=== PATIENT | male | born 1985 | race Two or more races ===

== ENCOUNTER 2022-12-06 23:18 | Emergency (ER) | payer SELFPAY ==
[~2022-12-06] VITALS: Ht 170.2 cm; Wt 108.0 kg
[2022-12-06 23:34] VITALS: BP 138/71; PULSE 70; RESP 18; TEMP 98.7
== END 2022-12-07 01:20 | disposition home or self-care (01) ==
LOC: EMS 23:22
DX: S61.212A Laceration without foreign body of right middle finger without damage to nail, initial encounter (principal); W45.8XXA Other foreign body or object entering through skin, initial encounter; Y93.89 Activity, other specified; Y92.89 Other specified places as the place of occurrence of the external cause; Y99.8 Other external cause status
CPT/HCPCS: 99281; Z7502